=== PATIENT | male | born 1970 | race Caucasian/White ===

== ENCOUNTER 2016-07-28 10:45 | Outpatient (CLI) | payer MEDICAID | END 2016-07-28 10:46 | disposition home or self-care (01) | DX: N50.9 Disorder of male genital organs, unspecified (principal) ==

== ENCOUNTER 2016-12-01 14:57 | Outpatient (CLI) | payer MEDICAID | END 2016-12-01 14:58 | disposition home or self-care (01) | LOC: LAB.F 14:57 | PROVIDERS: ATTEND Psychiatry & Neurology Psychiatry | DX: F90.9 Attention-deficit hyperactivity disorder, unspecified type (principal); F32.9 Major depressive disorder, single episode, unspecified; G47.00 Insomnia, unspecified | CPT/HCPCS: 80306 ==

== ENCOUNTER 2016-12-29 14:09 | Outpatient (CLI) | payer MEDICAID | END 2016-12-29 14:10 | disposition home or self-care (01) | LOC: LAB.F 14:09 | PROVIDERS: ATTEND Psychiatry & Neurology Psychiatry | DX: F90.9 Attention-deficit hyperactivity disorder, unspecified type (principal); F32.9 Major depressive disorder, single episode, unspecified; G47.00 Insomnia, unspecified | CPT/HCPCS: 80306 ==

== ENCOUNTER 2018-05-12 16:32 | Emergency (ER) | payer SELFPAY ==
[2018-05-12 16:47] VITALS: BP 160/100
[2018-05-12] MEDS ORDERED: DEXAMETHASONE 10 MG/ML VIAL PO STA (17:41)
[2018-05-12] MEDS ORDERED: ALBUTEROL NEB 2.5 MG/3 ML INH STA (17:41)
--- NOTE | 2018-05-12 17:45 | ED Physician Documentation ---
History of Present Illness - Stated complaint Stated Complaint: COUGH X3 WEEKS - Chief complaint Chief Complaint: General - History obtained from History obtained from: Patient - History of Present Illness Timing: How many weeks ago (3) Pain level max: 0 Pain level now: 0 Improved by: Nothing Worsened by: Nothing - Additonal information Additional information: 47-year-old male presents the emergency department stating that cough for the past 3 weeks. States that he had the flu 3 weeks ago but the cough has persisted. Does not smoke cigarettes. Occasionally uses marijuana. Does have exercise-induced asthma and has been using his inhaler at home. The cough is worse with exertion and better with rest. No fevers. No chills. Dry cough. No vomiting. No diarrhea Review of Systems Ten Systems: 10 systems reviewed and negative Constitutional: denies: Fever, Chills Throat: denies: Sore throat Respiratory: reports: Cough, Wheezing. denies: Dyspnea GI: denies: Nausea, Vomiting Skin: denies: Rash Musculoskeletal: denies: Neck pain, Back pain Neurologic: denies: Headache PD PAST MEDICAL HISTORY - Past Medical History Past Medical History: Yes Respiratory: Asthma - Past Surgical History Past Surgical History: No - Present Medications Home Medications: Ambulatory Orders Medication Instructions Recorded Confirmed Albuterol Sulf [Ventolin Hfa 1 - 2 puffs INH Q4HR PRN #1 inhaler 05/12/18 Inhaler] predniSONE [Prednisone] 40 mg PO DAILY #10 tablet 05/12/18 - Allergies Allergies/Adverse Reactions: Allergies Allergy/AdvReac Type Severity Reaction Status Date / Time No Known Drug Allergies Allergy Verified 05/12/18 16:43 - Living Situation Living Arrangement: reports: At home - Social History Does the pt smoke?: No Does the pt have substance abuse?: Yes Substance Use and Type: Marijuana - Family History Family history: reports: Non contributory PD ED PE NORMAL - Vitals Vital signs reviewed: Yes - General General: Alert and oriented X 3, No acute distress, Well developed/nourished - HEENT HEENT: PERRL, Ears normal, Moist mucous membranes, Pharynx benign - Neck Neck: Supple, no meningeal sign, No adenopathy - Cardiac Cardiac: RRR - Respiratory Respiratory: No respiratory distress, Other (Diminished breath sounds bilaterally) - Abdomen Abdomen: Soft, Non tender, Non distended - Derm Derm: Warm and dry, No rash - Extremities Extremities: No edema - Neuro Neuro: Alert and oriented X 3 - Psych Psych: Normal mood, Normal affect Results - Vitals Vitals: Vital Signs - 24 hr 05/12/18 05/12/18 16:43 17:53 Temperature 36.9 C Heart Rate 108 H 78 Respiratory 16 18 Rate Blood Pressure 160/100 H O2 Saturation 97 Oxygen O2 Source Room air - Rads (name of study) cxr Radiology: Prelim report reviewed, EMP read contemporaneously, See rad report (No acute disease) PD MEDICAL DECISION MAKING - ED course Complexity details: reviewed results, re-evaluated patient, considered differential, d/w patient ED course: 47-year-old male with what appears to be a viral syndrome. Feels better after nebulizer treatment and is breathing easier. No acute findings on x-ray. He is well-appearing, nontoxic. Afebrile. No hypoxia. Patient counseled regarding signs and symptoms for which I believe and urgent re-evaluation would be n ecessary. Patient with good understanding of and agreement to plan and is comfortable going home at this time This document was made in part using voice recognition software. While efforts are made to proofread this document, sound alike and grammatical errors may occur. Departure - Departure Disposition: 01 Home, Self Care Clinical Impression: Viral URI Condition: Good Instructions: ED Viral Syndrome Follow-Up: your,doctor in 1 week [Other] Prescriptions: Albuterol Sulf [Ventolin Hfa Inhaler] 1 - 2 puffs INH Q4HR PRN #1 inhaler PRN Reason: Shortness Of Air/Wheezing predniSONE [Prednisone] 40 mg PO DAILY #10 tablet Comments: Use the steroids and albuterol. Return if you worsen. Follow-up with your doctor for further care. Discharge Date/Time: 05/12/18 18:12
--- NOTE | 2018-05-12 17:48 | XRAY Report ---
Reason: cough x3 week Procedure Date: 05/12/2018 Accession Number: [id number] / [id number] Procedure: XR - Chest 2 View X-Ray CPT Code: 04269 FULL RESULT: EXAM: CHEST RADIOGRAPHY EXAM DATE: 05/12/2018 05:32 PM. CLINICAL HISTORY: Cough x3 week. COMPARISON: None. TECHNIQUE: 2 views. FINDINGS: Lungs/Pleura: Clear. No effusion or pneumothorax. Mediastinum: Heart and mediastinal contours are unremarkable. Other: None. IMPRESSION: Normal 2-view chest radiography. [facility]
[2018-05-12] MEDS ORDERED: CHERRY SYRUP 10 ML UDC PO ONE (17:50)
== END 2018-05-12 18:12 | disposition home or self-care (01) ==
LOC: ED 16:32
DX: J06.9 Acute upper respiratory infection, unspecified (principal); B97.89 Other viral agents as the cause of diseases classified elsewhere
CPT/HCPCS: 71046; 94640; 94664; 99283; A9270